=== PATIENT | female | born 1990 | race Hispanic/Latino ===

== ENCOUNTER 2020-06-21 19:59 | Inpatient (IN) | payer OTHER ==
[~2020-06-21] VITALS: Ht 154.9 cm; Wt 73.5 kg
[2020-06-21] MEDS ORDERED: ONDANSETRON HCL 4 MG/2 ML VIAL ONE (20:20)
[2020-06-21] MEDS ORDERED: SODIUM CHLORIDE 0.9% 1000ML 1,000 ML IV ONE (20:21)
[2020-06-21 20:42] LABS: BASOPHILS % (AUTO) 0.2 % (0.0-5.0); HEMATOCRIT 41.1 % (36-48); LYMPHOCYTES % (AUTO) 11.8 % (21.0-51.0); MEAN CORPUSCULAR HEMOGLOBIN 25.2 pg (27.0-33.0); MEAN CORPUSCULAR HGB CONC 34.1 g/dL (32.0-36.0); MEAN CORPUSCULAR VOLUME 73.9 fL (79-99); MONOCYTES % (AUTO) 9.7 % (3.0-13.0); NEUTROPHILS % (AUTO) 77.7 % (40.0-77.0); PLATELET COUNT (AUTO) 379 K/uL (130-400); RED BLOOD CELL COUNT(AUTO) 5.56 MIL/uL (4.00-5.50); RED CELL DISTRIBUTION WIDTH 14.6 % (11.0-15.5); WHITE BLOOD COUNT (AUTO) 17.9 K/uL (4.8-10.8)
[2020-06-21 20:44] LABS: APPEARANCE,URINE CLOUDY (CLEAR); BILIRUBIN,URINE MODERATE (NEGATIVE); COLOR,URINE YELLOW (YELLOW); GLUCOSE, URINE (UA) NEGATIVE (NEGATIVE); KETONES,URINE 40 mg/dL (NEGATIVE); LEUKOCYTE ESTERASE ,URINE TRACE (NEGATIVE); NITRATE,URINE NEGATIVE (NEGATIVE); OCCULT BLOOD,URINE LARGE (NEGATIVE); PH,URINE 5.5 (5.0-8.0); PROTEIN,URINE 100 mg/dL (NEGATIVE)
[2020-06-21 20:46] LABS: HCG,QUAL RESULT POSITIVE (NEGATIVE)
[2020-06-21 20:55] LABS: INR 1.07 (0.85-1.15); PROTHROMBIN TIME 11.4 SEC (9.6-11.6)
[2020-06-21 20:56] LABS: PARTIAL THROMBOPLASTIN TIME 26.5 SEC (26.3-35.5)
[2020-06-21 20:57] LABS: BACTERIA,URINE Few /HPF (None Seen); BILIRUBIN,TOTAL 2.3 mg/dL (0.2-1.0); CREATININE 0.7 mg/dL (0.5-1.5); MUCUS,URINE Moderate LPF (None Seen); SQUAMOUS EPITHELIAL CELL,UR Moderate /HPF (0-2); TOTAL PROTEIN, SERUM 8.4 g/dL (6.0-8.3)
[2020-06-21 20:58] LABS: POTASSIUM 2.1 mmol/L (3.5-5.1); YEAST,URINE BUDDING Rare /HPF (None Seen)
[2020-06-21] MEDS ORDERED: POTASSIUM BICARB/CIT AC 25 MEQ TABLET.EFF ONE (21:22)
[2020-06-21] MEDS ORDERED: CEFTRIAXONE SODIUM 1 GM ONE (21:22)
[2020-06-21] MEDS ORDERED: LIDOCAINE HCL-MPF 1% 2ML VIAL ONE (22:00)
[2020-06-21] MEDS ORDERED: POTASSIUM CHLORIDE 20MEQ/100ML 100 ML IV ONE (22:00)
[2020-06-21] MEDS ORDERED: MAG HYDROX/AL HYDROX/SIMETH ES 30 ML SUSP UDCUP ONE (22:22)
[2020-06-21 23:30] VITALS: BP 104/64
[2020-06-21] MEDS: LACTATED RINGERS 1000ML 1,000 ML IV SCH (23:45)
[2020-06-22] MEDS ORDERED: PROMETHAZINE HCL 25 MG/ML 1ML AMPULE IM PRN (00:30)
[2020-06-22 03:26] VITALS: BP 111/59
[2020-06-22] MEDS: LACTATED RINGERS 1000ML 1,000 ML IV SCH ×4 (04:45→19:27)
[2020-06-22 07:16] VITALS: BP 107/62
[2020-06-22 11:20] VITALS: BP 86/43
[2020-06-22 16:34] VITALS: BP 99/51
[2020-06-22] MEDS ORDERED: ONDANSETRON HCL 4 MG/2 ML VIAL IVP PRN (18:15)
[2020-06-22 19:19] VITALS: BP 97/56
[2020-06-22 23:25] VITALS: BP 89/44
[2020-06-23] MEDS: LACTATED RINGERS 1000ML 1,000 ML IV SCH ×2 (01:22→06:56)
[2020-06-23 03:30] VITALS: BP 99/51
[2020-06-23 07:27] VITALS: BP 91/51
[2020-06-23 11:29] VITALS: BP 95/49
[2020-06-23 15:15] VITALS: BP 97/53
== END 2020-06-23 16:00 | disposition home or self-care (01) | DRG 833 ==
LOC: EDH 19:59 → OBSVTOIN 22:30 → EDHIP 22:30 → WSH 23:22
PROVIDERS: ADMIT Obstetrics & Gynecology; ATTEND Obstetrics & Gynecology
DX: O21.0 Mild hyperemesis gravidarum (principal); Z20.828 Contact with and (suspected) exposure to other viral communicable diseases; Z3A.01 Less than 8 weeks gestation of pregnancy
CPT/HCPCS: 36415; 76801; 80053; 81001; 81025; 83690; 84702; 85025; 85610; 85730; 87088; 87426; G0378; J0696; J2405; J3480; J3490; J7030; J7120; U0003

== ENCOUNTER 2020-10-24 13:56 | Observation (INO) | payer MEDICAID, OTHER ==
[~2020-10-24] VITALS: Ht 157.5 cm; Wt 74.8 kg
[2020-10-24] MEDS ORDERED: ONDANSETRON HCL 4 MG/2 ML VIAL ONE (14:30)
[2020-10-24 14:53] LABS: BASOPHILS % (AUTO) 0.3 % (0.0-5.0); EOSINOPHILS % (AUTO) 0.3 % (0.0-8.0); HEMATOCRIT 39.5 % (36-48); LYMPHOCYTES % (AUTO) 9.2 % (21.0-51.0); MEAN CORPUSCULAR HEMOGLOBIN 25.8 pg (27.0-33.0); MEAN CORPUSCULAR HGB CONC 33.2 g/dL (32.0-36.0); MEAN CORPUSCULAR VOLUME 77.8 fL (79-99); MONOCYTES % (AUTO) 6.4 % (3.0-13.0); NEUTROPHILS % (AUTO) 83.5 % (40.0-77.0); PLATELET COUNT (AUTO) 378 K/uL (130-400); RED BLOOD CELL COUNT(AUTO) 5.08 MIL/uL (4.00-5.50); RED CELL DISTRIBUTION WIDTH 14.6 % (11.0-15.5); WHITE BLOOD COUNT (AUTO) 14.8 K/uL (4.8-10.8)
[2020-10-24 15:26] LABS: APPEARANCE,URINE Cloudy (CLEAR); BILIRUBIN,URINE Small (NEGATIVE); COLOR,URINE Dark Yellow (YELLOW); GLUCOSE, URINE (UA) Negative (NEGATIVE); KETONES,URINE >=160 mg/dL (NEGATIVE); LEUKOCYTE ESTERASE ,URINE Moderate (NEGATIVE); NITRATE,URINE Negative (NEGATIVE); OCCULT BLOOD,URINE Large (NEGATIVE); PROTEIN,URINE POS 2+ mg/dL (NEGATIVE)
[2020-10-24 15:40] LABS: BACTERIA,URINE Few /HPF (None Seen); MUCUS,URINE Few LPF (None Seen)
[2020-10-24 15:46] LABS: ALBUMIN 4.3 g/dL (3.5-5.0); BILIRUBIN,TOTAL 2.1 mg/dL (0.2-1.0); CREATININE 0.8 mg/dL (0.5-1.5); TOTAL PROTEIN, SERUM 8.8 g/dL (6.0-8.3)
[2020-10-24 15:48] LABS: POTASSIUM 2.5 mmol/L (3.5-5.1)
[2020-10-24] MEDS ORDERED: POTASSIUM BICARB/CIT AC 25 MEQ TABLET.EFF ONE (15:51)
[2020-10-24] MEDS ORDERED: METOCLOPRAMIDE 10 MG/2 ML VIAL ONE (16:09)
[2020-10-24] MEDS ORDERED: CEFTRIAXONE SODIUM 2 GM VIAL ONE (16:10)
[2020-10-24] MEDS ORDERED: SODIUM CHLORIDE 0.9% 100 ML IV ONE (16:12)
[2020-10-24 17:27] VITALS: BP 101/58
[2020-10-24] MEDS ORDERED: PROMETHAZINE HCL 25 MG/ML 1ML AMPULE IM PRN (17:30)
[2020-10-24] MEDS ORDERED: LIDOCAINE HCL-MPF 1% 2ML VIAL IV PRN (17:30)
[2020-10-24] MEDS: POTASSIUM CHLORIDE 20MEQ/100ML 100 ML IV PRN ×2 (18:41→23:19)
[2020-10-24] MEDS: DEXTROSE 5%-LACTATED RINGERS 1,000 ML IV SCH (19:11)
[2020-10-24 19:42] VITALS: BP 85/48
[2020-10-24] MEDS: ONDANSETRON HCL 4 MG/2 ML VIAL IVP PRN (23:31)
[2020-10-24 23:42] VITALS: BP 89/61
[2020-10-25] MEDS: DEXTROSE 5%-LACTATED RINGERS 1,000 ML IV SCH ×3 (02:23→16:23)
[2020-10-25 03:51] VITALS: BP 96/54
[2020-10-25] MEDS: POTASSIUM CHLORIDE 20MEQ/100ML 100 ML IV PRN ×2 (04:41→10:28)
[2020-10-25 08:00] VITALS: BP 94/56
[2020-10-25] MEDS: ONDANSETRON HCL 4 MG/2 ML VIAL IVP PRN ×2 (08:18→18:05)
[2020-10-25 11:50] VITALS: BP 100/58
[2020-10-25] MEDS ORDERED: POTASSIUM CHLORIDE 10% ELIXIR 20 MEQ/15 ML UDCUP PO PRN (14:15)
[2020-10-25] MEDS ORDERED: POTASSIUM CHLORIDE 20 MEQ ERTAB PO PRN (14:15)
[2020-10-25] MEDS ORDERED: POTASSIUM CHLORIDE 20MEQ/100ML 100 ML IV PRN (14:15)
[2020-10-25 15:31] VITALS: BP 90/57
== END 2020-10-25 19:00 | disposition home or self-care (01) ==
LOC: EDH 13:56 → EDHIP 13:58 → WSH 17:25
PROVIDERS: ADMIT Obstetrics & Gynecology; ATTEND Obstetrics & Gynecology
DX: O21.0 Mild hyperemesis gravidarum (principal); O99.281 Endocrine, nutritional and metabolic diseases complicating pregnancy, first trimester; E88.89 Other specified metabolic disorders; O23.41 Unspecified infection of urinary tract in pregnancy, first trimester; Z3A.01 Less than 8 weeks gestation of pregnancy
CPT/HCPCS: 36415 ×2; 76801; 80053; 81001; 83690; 84132 ×2; 84702; 85025; 86850; 86900; 86901; 87088; 96361 ×2; 96372; 96374; 96375; 96376; 99284; G0378 ×26; J0696; J2405 ×5; J2550; J2765; J3480 ×4; J3490

== ENCOUNTER 2022-07-31 13:11 | Emergency (ER) | payer MEDICAID ==
[~2022-07-31] VITALS: Ht 154.9 cm; Wt 77.1 kg
[2022-07-31 14:31] LABS: BASOPHILS % (AUTO) 0.4 % (0.0-5.0); EOSINOPHILS % (AUTO) 0.8 % (0.0-8.0); LYMPHOCYTES % (AUTO) 18.7 % (21.0-51.0); MEAN CORPUSCULAR HEMOGLOBIN 25.6 pg (27.0-33.0); MEAN CORPUSCULAR HGB CONC 32.4 g/dL (32.0-36.0); MEAN CORPUSCULAR VOLUME 79.1 fL (79-99); MONOCYTES % (AUTO) 7.3 % (3.0-13.0); NEUTROPHILS % (AUTO) 72.2 % (40.0-77.0); PLATELET COUNT (AUTO) 311 K/uL (130-400); RED CELL DISTRIBUTION WIDTH 16.5 % (11.0-15.5); WHITE BLOOD COUNT (AUTO) 12.3 K/uL (4.8-10.8)
[2022-07-31 14:50] LABS: APPEARANCE,URINE SL CLOUDY (CLEAR); BILIRUBIN,URINE NEGATIVE (NEGATIVE); COLOR,URINE YELLOW (YELLOW); GLUCOSE, URINE (UA) NEGATIVE (NEGATIVE); KETONES,URINE 40 mg/dL (NEGATIVE); LEUKOCYTE ESTERASE ,URINE TRACE Leu/uL (NEGATIVE); NITRATE,URINE NEGATIVE (NEGATIVE); OCCULT BLOOD,URINE LARGE (NEGATIVE); PROTEIN,URINE NEGATIVE (NEGATIVE); UROBILINOGEN,URINE 0.2 mg/dL (0.2-1.0)
[2022-07-31 14:54] LABS: BACTERIA,URINE FEW /HPF (None Seen); MUCUS,URINE RARE LPF (None Seen); RBC,URINE 0-1 /HPF (0-1); SQUAMOUS EPITHELIAL CELL,UR MOD /HPF (0-2)
[2022-07-31 16:34] VITALS: BP 127/77
== END 2022-07-31 16:33 | disposition home or self-care (01) ==
LOC: EDH 13:11
DX: O20.9 Hemorrhage in early pregnancy, unspecified (principal); O26.892 Other specified pregnancy related conditions, second trimester; R10.30 Lower abdominal pain, unspecified; Z3A.17 17 weeks gestation of pregnancy
CPT/HCPCS: 36415; 76805; 81001; 84702; 85025